=== PATIENT | male | born 1945 | race Caucasian/White ===

== ENCOUNTER 2023-03-30 21:58 | Emergency (ER) | payer OTHER, MEDICAID ==
[~2023-03-30] VITALS: Ht 162.6 cm; Wt 63.5 kg
[2023-03-30 22:19] VITALS: BP_SYST 136; PULSE 62; RESP 16; TEMP 98.3; O2SAT 97
[2023-03-31] MEDS ORDERED: HYDROcodone/ACETAMIN 5-325 MG TAB (NORCO/ VICODIN) PO ONE (02:15)
[2023-03-31] MEDS ORDERED: NAPR-1172 PO (03:36)
[2023-03-31] MEDS ORDERED: BACITRACIN 1 GM OINT TP ONE (03:45)
[2023-03-31 03:55] VITALS: BP_SYST 136; PULSE 62; RESP 16; TEMP 98.3; O2SAT 97
== END 2023-03-31 03:55 | disposition home or self-care (01) ==
LOC: SED 21:58
DX: S02.32XA Fracture of orbital floor, left side, initial encounter for closed fracture (principal); I10 Essential (primary) hypertension; Z79.899 Other long term (current) drug therapy; W18.30XA Fall on same level, unspecified, initial encounter; Y93.89 Activity, other specified; Y92.89 Other specified places as the place of occurrence of the external cause; Y99.8 Other external cause status
CPT/HCPCS: 70450-TC; 70486-TC; 76376; 99284